=== PATIENT | male | born 1950 | race Caucasian/White ===

== ENCOUNTER 2017-03-05 02:47 | Inpatient (IN) | payer OTHER ==
--- NOTE | ~2017-03-05 | DS ---
Discharge Summary [place] [id number] [place]. [address] NAME: YUE MATIAS : 50 STATUS : DIS IN PAT#: [id number] AGE: 66 ADM/REG DATE : 03/05/17 MR#: [id number] REPORT SERV DATE: 03/09/17 DICTATED BY: RIOS SAUNDERS DATE: 03/08/17 REPORT STATUS : Draft TRANSCRIBED BY: MODL DATE: 03/08/17 ADMISSION DATE: 03/05/2017 DISCHARGE DATE: 03/08/2017 DISCHARGE DIAGNOSES: 1. Large duodenal ulcer with bleeding vessels, status post EGD with Hemoclips. 2. Grade C esophagitis. 3. Gastrointestinal bleed with acute blood loss anemia, the patient did not require any blood transfusions. 4. Gastroesophageal reflux disease. 5. Hypertension. 6. Obstructive sleep apnea. 7. Type 2 diabetes. CONSULTANTS: Dylan Rivera MD of GI. PROCEDURES: EGD performed on 03/05/2017 that showed a large duodenal ulcer with bleeding vessels that was clipped. It also revealed a grade C esophagitis. HOSPITAL COURSE: This is a 66-year-old gentleman who was admitted to the hospital with acute GI bleed. For details, please refer to excellent H and P dictated by Dr. Matt Lopez. In summary, the patient was actually admitted to the intensive care unit due to acute ongoing bleeding. The patient was seen by GI and underwent an EGD. The EGD findings are noted above. After the EGD, the patient remained on Protonix drip for 72 hours and he did not have any further evidence of bleeding. The patient was admitted with hemoglobin of 14 which declined down to 10 and it remained stable there, and thus, he did not require any blood transfusions. The patient is now being discharged home after appropriate length of IV Protonix therapy. The patient has plans for close outpatient followup. DISPOSITION: Home. DISCHARGE MEDICATIONS: Protonix 40 mg p.o. b.i.d. as a new medication, otherwise, no changes. FOLLOWUP: 1. Please follow up with PCP in the next one to two weeks. 2. Please follow up with GI as instructed. A total of 25 minutes spent in coordinating this patient's discharge today. DICTATED BY: Rios Saunders MD Barbara/SAMANTA Discharge Summary [place] [id number] [address] NAME: YUE MATIAS : 50 STATUS : DIS IN PAT#: [id number] AGE: 66 ADM/REG DATE : 03/05/17 MR#: [id number] REPORT SERV DATE: 03/09/17 DICTATED BY: RIOS SAUNDERS DATE: 03/08/17 REPORT STATUS : Draft TRANSCRIBED BY: SAMANTA DATE: 03/08/17 Rios Saunders MD / [id number] CC: Missy Hansen M.D.
--- NOTE | ~2017-03-05 | CN ---
Consultation Report [facility] [address] [place]. [address] NAME: YUE MATIAS : 50 STATUS : ADM IN PAT#: [id number] AGE: 66 ADM/REG DATE : 03/05/17 MR#: [id number] REPORT SERV DATE: 03/05/17 DICTATED BY: DYLAN SCHMIDT DATE: 03/05/17 REPORT STATUS : Draft TRANSCRIBED BY: MODL DATE: 03/05/17 INPATIENT CONSULTATION DATE OF CONSULTATION: 03/05/2017 REASON FOR CONSULTATION: Melena and concern for upper GI bleeding. HISTORY OF PRESENT ILLNESS: Mr. Matias is a very pleasant 66-year-old male with a past medical history significant for prior peptic ulcer disease, who presented to the emergency department after multiple episodes of black tarry stool. The patient states that he had an episode of what he believes to be food poisoning almost a week ago with abdominal discomfort, loose bowels, and nauseousness, but no episodes of vomiting. The patient has had hiccups since last week and has felt the need to vomit, but has not been able to. The patient denies any NSAID use. He states that his last EGD and colon was approximately six years ago in 2010 in [place] with no significant findings at that time. On the day prior to this consultation, the patient started having black stools, which is what prompted him to come to the emergency department along with a feeling of weakness and severe fatigue. Upon presentation in the emergency department, the patient was noted to have CBC with a white count of 17.3, hemoglobin of 13.9, and a platelet count of 356,000. INR was 1.2. PTT was 25. Comprehensive metabolic panel was remarkable only for an elevated BUN of 48 with a creatinine of 0.95. LFTs were normal. Electrolytes were normal. The patient underwent a CT of the abdomen and pelvis, which showed no acute abnormalities, although there was evidence of granulomatous disease both in the liver and spleen. In addition to this, there was also an increased area in the dependent portion of the cecum of contrast with question of retained medication versus contrast leakage into that area. No fevers or chills. No vomiting. No current abdominal pain. REVIEW OF SYSTEMS: All systems were reviewed and were negative aside from what was mentioned in the history of present illness. PAST MEDICAL HISTORY: 1. History of past peptic ulcer disease. 2. GERD. 3. Hypertension. 4. Diabetes. 5. COPD. FAMILY HISTORY: The patient denies any family history of GI related malignancy. SOCIAL HISTORY: The patient denies alcohol or illicit substance abuse. ALLERGIES: THE PATIENT HAS ALLERGIES TO NSAIDS. Consultation Report [place] [id number] [place]. [address] NAME: YUE MATIAS : 50 STATUS : ADM IN [facility]#: [id number] AGE: 66 ADM/REG DATE : 03/05/17 MR#: [id number] REPORT SERV DATE: 03/05/17 DICTATED BY: DYLAN SCHMIDT DATE: 03/05/17 REPORT STATUS : Draft TRANSCRIBED BY: SAMANTA DATE: 03/05/17 OUTPATIENT MEDICATIONS: Include. 1. Norvasc. 2. Atenolol. 3. Lasix. 4. Glucotrol. 5. Potassium chloride. 6. Lisinopril. 7. Metformin. 8. Zantac. 9. Vitamin D. 10.Vitamin C. 11.Combivent. 12.Phenergan. 13.Prednisone. PHYSICAL EXAMINATION: VITAL SIGNS: Most recent vital signs include a temperature of 97.6 with a T-max of 97.6, pulse rate of 109, blood pressure is 185/91, saturating 99% on 2 L nasal cannula oxygen. GENERAL: Inspection reveals a morbidly obese, male, lying in bed, in no apparent distress. HEENT: Head is normocephalic, atraumatic with normal inspection of the oral mucosa and posterior pharynx. Sclerae nonicteric. Pupils are equal and round. NECK: Supple without lymphadenopathy. CARDIAC: Heart rate is tachycardic, but regular. LUNGS: Lung sounds are clear to auscultation anteriorly. ABDOMEN: Mildly distended, nontender, and soft. Bowel sounds were appropriate. The patient had no masses that were palpated. EXTREMITIES: The patient had no cyanosis, clubbing, or edema. SKIN: No jaundice or rash. NEURO: No gross motor deficits. He is alert and oriented. Mood and affect are appropriate. Judgment appears to be intact. LABORATORY DATA: Most recent laboratory results show a hemoglobin of 13.0, and hematocrit of 39.4. Comprehensive metabolic panel and prior CBC are as noted in the history of present illness. DIAGNOSTIC STUDIES: CT of the abdomen and pelvis was reviewed personally by myself and showed no acute abnormality, question trace amount of contrast in the dependent portion of the cecum as noted in the report. ASSESSMENT AND PLAN: Mr. Matias is a very pleasant 66-year-old male with significant history of prior peptic ulcer disease on prednisone, who presents with nausea and multiple episodes of black stools concerning for recurrent upper GI bleed. We would keep patient n.p.o. for the time being and keep him on a Protonix drip continuously. We would continue to check his hemoglobin level every eight hours and transfuse as felt appropriate. We will plan on Consultation Report [place] [id number] [facility] [place]. [address] NAME: YUE MATIAS : 50 STATUS : ADM IN [facility]#: [id number] AGE: 66 ADM/REG DATE : 03/05/17 MR#: [id number] REPORT SERV DATE: 03/05/17 DICTATED BY: DYLAN SCHMIDT DATE: 03/05/17 REPORT STATUS : Draft TRANSCRIBED BY: SAMANTA DATE: 03/05/17 performing EGD in the near future. Thank you very much for this interesting consult and for allowing us to participate in Mr. Matias's care. Please call with any questions or concerns you might have. Barbara/SAMANTA Dylan Schmidt MD / [id number] CC: Missy Hansen M.D.
--- NOTE | ~2017-03-05 | IDS ---
Interim Discharge Summary [facility] [address] [place]. [address] NAME: YUE MATIAS : 50 STATUS : ADM IN [facility]#: [id number] AGE: 66 ADM/REG DATE : 03/05/17 MR#: [id number] REPORT SERV DATE: 03/06/17 DICTATED BY: MIGUEL MTZ IV DATE: 03/06/17 REPORT STATUS : Draft TRANSCRIBED BY: SAMANTA DATE: 03/06/17 ADMISSION DATE: 03/05/2017 DISCHARGE DATE: Date of transfer to the floor was 03/06/2017. ADMITTING DIAGNOSES: 1. Gastrointestinal bleed. 2. Large duodenal ulcer, with bleeding vessels which was clipped, with additional findings of grade C esophagitis. 3. Gastroesophageal reflux disease. 4. Hypertension. 5. Obstructive sleep apnea. 6. Type 2 diabetes mellitus. 7. Remote smoking history, for which he had a Combivent inhaler. There are no known chronic obstructive pulmonary disease. CONSULTANTS: Gastroenterology, Dr. Rivera. PROCEDURES: The patient underwent abdominal CT scan in the emergency room which demonstrated no evidence for obstruction, with evidence for old granulomatous disease. The patient had bilateral large hernias. He did have several punctate increased densities in the large bowel of unclear significance. The patient underwent EGD on 03/05/2017, demonstrating a grade C esophagitis, with herniation in the stomach, and confluent duodenal ulcers with visible vessel bleeding which was injected with epinephrine and clipped x2. CURRENT MEDICATIONS: The patient is on a Protonix drip, level 2 insulin sliding scale, pneumatic compression stockings, atenolol 25 mg daily, and Glucotrol 5 mg daily. HOSPITAL COURSE: The patient presented on 03/05/2017 with melena. He had a hemoglobin of 13.9. The patient was placed on Protonix drip, kept n.p.o. He underwent endoscopy on 03/05/2017, demonstrating the esophagitis with confluent duodenal ulcers with a bleeding vessel. The patient underwent epinephrine injection and clips, with subsequent hemoglobin stable, with current level of 12.2. He was initiated on clear liquid diet on 03/06/2017. All of his oral medications were held and he only recently has had a slight rise in his blood pressure. He was re-initiated on atenolol with hydralazine p.r.n. He is compliant with his home CPAP. He has an inhaler that he can use on an as-needed basis. Hemoglobin A1c will be obtained. He was re-initiated on Glucotrol, though metformin has been kept on hold. He was on DVT prophylaxis with pneumatic compression stockings. It was felt that he was stable for transfer to the floor, with hospitalist asked to resume responsibilities. He will continued to be followed by GI. Interim Discharge Summary [address] [address] NAME: YUE MATIAS : 50 STATUS : ADM IN PAT#: [id number] AGE: 66 ADM/REG DATE : 03/05/17 MR#: [id number] REPORT SERV DATE: 03/06/17 DICTATED BY: MIGUEL MTZ IV DATE: 03/06/17 REPORT STATUS : Draft TRANSCRIBED BY: SAMANTA DATE: 03/06/17 BRAYAN/SAMANTA Miguel Mtz IV, M.D. / [id number] CC: Missy Hansen M.D.
--- NOTE | ~2017-03-05 | HP ---
History And Physical [place] [id number] [facility] [place]. [address] NAME: YUE MATIAS : 50 STATUS : ADM IN [facility]#: [id number] AGE: 66 ADM/REG DATE : 03/05/17 MR#: [id number] REPORT SERV DATE: 03/05/17 DICTATED BY: JOSETTE HEADLEY DATE: 03/05/17 REPORT STATUS : Draft TRANSCRIBED BY: SAMANTA DATE: 03/05/17 DATE OF ADMISSION: 03/05/2017 REASON FOR ADMISSION: GI bleed. HISTORY OF PRESENT ILLNESS: The patient developed melena at home with some mild abdominal discomfort, but multiple melenic bowel movements, he even had some since admission to the ER, though no overt hematemesis. His initial blood pressure was low, but respond well to fluids, but he remained tachycardic, and overall uncomfortable with mild respiratory discomfort as well. He had a prior remote history of peptic ulcer disease, though that was several years ago. Former smoker. He is more comfortable, but again not back to his baseline. PAST MEDICAL HISTORY: Significant for peptic ulcer disease, hypertension. REVIEW OF SYSTEMS: Positive for what was noted above. SOCIAL HISTORY: Significant for prior tobacco use. No alcohol abuse. PHYSICAL EXAMINATION: GENERAL: He appears fatigued, tachypneic, tachycardic, but in no respiratory distress. HEENT: Normocephalic, atraumatic. NECK: Supple. No lymphadenopathy. No JVD. CHEST: Symmetric with good expansion bilaterally. LUNGS: Have distant breath sounds, but are clear. CARDIOVASCULAR: He has S1 and S2, which are tachycardic. ABDOMEN: Benign. He has no edema. No clubbing. No cyanosis. ASSESSMENT AND PLAN: Gastrointestinal bleed. The patient has had multiple melenic stools and will be seen by GI this morning. Hemoglobin is remarkably stable and has been good from admission, but he was very tachycardic, transiently hypotensive, and because of the high number of melena, bowel movements, we agreed to monitor him in the intensive care unit. Care was discussed with the patient and with the emergency department staff. DARREN/SAMANTA Josette Headley M.D. / [id number] CC: History And Physical [address] [address] NAME: YUE MATIAS : 50 STATUS : ADM IN PAT#: [id number] AGE: 66 ADM/REG DATE : 03/05/17 MR#: [id number] REPORT SERV DATE: 03/05/17 DICTATED BY: JOSETTE HEADLEY DATE: 03/05/17 REPORT STATUS : Draft TRANSCRIBED BY: MODL DATE: 03/05/17 Missy Hansen M.D.
--- NOTE | ~2017-03-05 | EGD ---
EGD REPORT [facility] [address] [address] NAME: YUE MATIAS : 50 STATUS : DIS IN PAT#: [id number] AGE: 66 ADM/REG DATE : 03/05/17 MR#: [id number] REPORT SERV DATE: 03/09/17 DICTATED BY: DYLAN SCHMIDT DATE: 03/09/17 REPORT STATUS : Draft [facility]ANSCRIBED BY: [facility] DATE: 03/09/17 Endoscopy Center Patient Name: Yue Matias Date of : 1950 Attending MD: DYLAN SCHMIDT MD Procedure Date No Time: 03/05/2017 Procedure: Upper GI endoscopy Indications: Melena Medicines: Monitored Anesthesia Care Complications: No immediate complications. Estimated blood loss: Minimal. Procedure: Pre-Anesthesia Assessment: - ASA Grade Assessment: III - A patient with severe systemic disease. After obtaining informed consent, the endoscope was passed under direct vision. Throughout the procedure, the patient's blood pressure, pulse, and oxygen saturations were monitored continuously. The GIF [id number] was introduced through the mouth, and advanced to the second part of duodenum. The upper GI endoscopy was accomplished without difficulty. The patient tolerated the procedure well. Findings: LA Grade C (one or more mucosal breaks continuous between tops of 2 or more mucosal folds, less than 75% circumference) esophagitis with no bleeding was found in the lower third of the esophagus. Hematin (altered blood/ufugch-rbsxxi-aspf material) was found in the entire examined stomach. Many oozing cratered duodenal ulcers with a visible vessel were found in the duodenal bulb and in the first part of the duodenum. The largest lesion was 20 mm in largest dimension. Area was successfully injected with 5 mL of a 1:10,000 solution of epinephrine for hemostasis. Two hemostatic clips were successfully placed. There was no bleeding at the end of the procedure. Estimated blood loss was minimal. Biopsies were taken with a cold forceps for histology. Estimated blood loss was minimal. The exam was otherwise without abnormality. Impression: - LA Grade C reflux esophagitis. - Hematin (altered blood/ziqvxj-hluhks-nxgw material) in the entire stomach. - Multiple duodenal ulcers oozing blood. Injected. Clips were placed. Biopsied. - The examination was otherwise normal. EGD REPORT [address] [address] NAME: YUE MATIAS : 50 STATUS : DIS IN PAT#: [id number] AGE: 66 ADM/REG DATE : 03/05/17 MR#: [id number] REPORT SERV DATE: 03/09/17 DICTATED BY: DYLAN SCHMIDT DATE: 03/09/17 REPORT STATUS : Draft TRANSCRIBED BY: [employer] DATE: 03/09/17 Recommendation: - NPO today. - Await pathology results. - Give Protonix (pantoprazole): 8 mg/hr IV by continuous infusion for 3 days. Procedure Code(s): --- Professional --- 97454, 59, Esophagogastroduodenoscopy, flexible, transoral; with control of bleeding, any method 57958, Esophagogastroduodenoscopy, flexible, transoral; with biopsy, single or multiple Diagnosis Code(s): --- Professional --- K21.0, Gastro-esophageal reflux disease with esophagitis K92.2, Gastrointestinal hemorrhage, unspecified K26.4, Chronic or unspecified duodenal ulcer with hemorrhage K92.1, Melena CPT copyright 2013 [employer]. All rights reserved. The codes documented in this report are preliminary and upon fine grade bulldozer operator review may be revised to meet current compliance requirements. Dylan Schmidt MD DYLAN SCHMIDT MD 03/05/2017 4:19 PM This report has been signed electronically. Number of Addenda: 0 Note Initiated On: 03/05/2017 3:20 PM Scope Withdrawal Time 0 hours 0 minutes 0 seconds [address] [place] [address]
[2017-03-05 01:22] LABS: INTERNATIONAL NORMAL RATI 1.2 UNITS (-); PARTIAL THROMBO TIME 24.9 SEC (22.5-37.2); PROTIME (NOT ORD) 14.9 SEC (12.0-14.5)
[2017-03-05 01:28] LABS: BASOPHILS 0.1 %; BASOPHILS ABSOLUTE 0.02 10/3/uL (0.0-0.16); EOSINOPHILS 0.1 %; EOSINOPHILS ABSOLUTE 0.02 10/3/uL (0.0-0.53); HEMATOCRIT 40.9 % (40.0-51.0); HEMOGLOBIN 13.9 g/dL (13.6-17.8); IMMATURE GRANULOCYTES 1.9 %; IMMATURE GRANULOCYTES ABSOLUTE 0.33 10/3/uL (0.0-0.11); LYMPHOCYTES 15.2 %; LYMPHOCYTES ABSOLUTE 2.63 10/3/uL (0.67-4.30); MEAN CORPUSCULAR HEMOGLOB 31.3 pg (26.0-34.0); MEAN CORPUSCULAR VOLUME 92.1 fL (80-100); MEAN PLATELET VOLUME 10.7 fL (9.2-13.0); MONOCYTES 12.6 %; MONOCYTES ABSOLUTE 2.17 10/3/uL (0.21-1.20); NEUTROPHILS 70.1 %; NEUTROPHILS ABSOLUTE 12.11 10/3/uL (2.02-8.40); PLATELET COUNT 356 10/3/uL (150-400); RED CELL COUNT 4.44 10/6/uL (4.7-6.1); WHITE BLOOD CELLS 17.3 10/3/uL (4.5-10.5)
[2017-03-05 01:29] LABS: MANUAL DIFF NO %
[2017-03-05 01:30] LABS: A/G RATIO 0.8 (0.7-1.9); ALKALINE PHOSPHATASE 54 U/L (45-117); BUN (BLOOD UREA NITROGEN) 48 MG/DL (6-23); CALCIUM, SERUM 8.4 MG/DL (8.5-10.4); CHLORIDE, SERUM 106 MMOL/L (96-112); CO2 (CARBON DIOXIDE) 24 MMOL/L (24-34); CREATININE 0.95 MG/DL (0.70-1.30); GFR AFRICAN AMERICAN 96 ML/MIN (>=60); GFR NON AFRICAN AMERICAN 83 ML/MIN (>=60); GLOBULIN 3.7 G/DL (2.5-4.1); GLUCOSE, SERUM 253 MG/DL (60-99); POTASSIUM, SERUM 4.9 MMOL/L (3.5-5.3); SGOT(AST) 16 U/L (5-40); SGPT(ALT) 36 U/L (5-65); SODIUM, SERUM 140 MMOL/L (135-148); TOTAL BILIRUBIN 0.4 MG/DL (0-1.2); TOTAL PROTEIN 6.7 G/DL (6.0-8.5)
[~2017-03-05 02:47] MED LIST: NORV10 PO
[2017-03-05] MEDS ORDERED: ATEN25 PO (02:48)
[2017-03-05] MEDS ORDERED: L40 PO (02:48)
[2017-03-05] MEDS ORDERED: KLOR-CON M1010 MEQ PO (02:49)
[2017-03-05] MEDS ORDERED: GLUCXL5 PO (02:49)
[2017-03-05] MEDS ORDERED: LISINOPRIL40 MG PO (02:50)
[2017-03-05] MEDS ORDERED: GLUCOPHAGE1000 MG PO (02:50)
[2017-03-05] MEDS ORDERED: VITAMIN D31000 UNIT PO (02:56)
[2017-03-05] MEDS ORDERED: ZANTAC150 MG PO (02:56)
[2017-03-05] MEDS ORDERED: VITAMIN C PO (02:57)
[2017-03-05] MEDS ORDERED: PR25 PO ×2 (03:24→03:25)
[2017-03-05] MEDS ORDERED: COMBIVENT RESPIM4 GM INH (03:24)
[2017-03-05] MEDS ORDERED: P20 PO (03:25)
[2017-03-05 06:01] LABS: HEMATOCRIT 39.4 % (40.0-51.0)
[2017-03-05 09:06] LABS: HEMATOCRIT 38.2 % (40.0-51.0); HEMOGLOBIN 13.1 g/dL (13.6-17.8)
[2017-03-05 12:54] LABS: HEMATOCRIT 37.9 % (40.0-51.0); HEMOGLOBIN 12.9 g/dL (13.6-17.8)
[2017-03-05 17:03] LABS: HEMOGLOBIN 14.5 g/dL (13.6-17.8)
[2017-03-05 17:05] LABS: HEMATOCRIT 43.4 % (40.0-51.0)
[2017-03-05 20:44] LABS: HEMATOCRIT 33.9 % (40.0-51.0); HEMOGLOBIN 11.3 g/dL (13.6-17.8)
[2017-03-06 01:32] LABS: HEMATOCRIT 33.3 % (40.0-51.0); HEMOGLOBIN 11.3 g/dL (13.6-17.8)
[2017-03-06 05:38] LABS: HEMOGLOBIN 12.2 g/dL (13.6-17.8)
[2017-03-06 05:41] LABS: HEMATOCRIT 36.9 % (40.0-51.0)
[2017-03-06 11:02] LABS: BASOPHILS 0.3 %; BASOPHILS ABSOLUTE 0.03 10/3/uL (0.0-0.16); EOSINOPHILS 0.7 %; EOSINOPHILS ABSOLUTE 0.08 10/3/uL (0.0-0.53); HEMATOCRIT 34.1 % (40.0-51.0); HEMOGLOBIN 11.2 g/dL (13.6-17.8); IMMATURE GRANULOCYTES 2.7 %; IMMATURE GRANULOCYTES ABSOLUTE 0.32 10/3/uL (0.0-0.11); LYMPHOCYTES 26.6 %; LYMPHOCYTES ABSOLUTE 3.17 10/3/uL (0.67-4.30); MANUAL DIFF NO %; MEAN CORPUS HGB CONC 32.8 g/dL (32.0-36.0); MEAN CORPUSCULAR HEMOGLOB 30.9 pg (26.0-34.0); MEAN CORPUSCULAR VOLUME 93.9 fL (80-100); MEAN PLATELET VOLUME 10.2 fL (9.2-13.0); MONOCYTES 11.5 %; MONOCYTES ABSOLUTE 1.37 10/3/uL (0.21-1.20); NEUTROPHILS 58.2 %; NEUTROPHILS ABSOLUTE 6.95 10/3/uL (2.02-8.40); PLATELET COUNT 270 10/3/uL (150-400); RBC DISTRIBUTION WIDTH 14.5 % (12.0-16.0); RED CELL COUNT 3.63 10/6/uL (4.7-6.1); WHITE BLOOD CELLS 11.9 10/3/uL (4.5-10.5)
[2017-03-06 11:16] LABS: ALBUMIN 2.8 G/DL (3.5-5.0); CHLORIDE, SERUM 115 MMOL/L (96-112); CO2 (CARBON DIOXIDE) 26 MMOL/L (24-34); CREATININE 0.69 MG/DL (0.70-1.30); GFR AFRICAN AMERICAN 115 ML/MIN (>=60); GFR NON AFRICAN AMERICAN 99 ML/MIN (>=60); PHOSPHORUS, SERUM 2.2 MG/DL (2.5-4.5); POTASSIUM, SERUM 4.3 MMOL/L (3.5-5.3); SODIUM, SERUM 144 MMOL/L (135-148)
[2017-03-06 11:18] LABS: BUN (BLOOD UREA NITROGEN) 19 MG/DL (6-23); GLUCOSE, SERUM 154 MG/DL (60-99)
[2017-03-07 02:18] LABS: HEMOGLOBIN 9.9 g/dL (13.6-17.8); MEAN CORPUS HGB CONC 32.7 g/dL (32.0-36.0); MEAN CORPUSCULAR HEMOGLOB 30.7 pg (26.0-34.0); MEAN CORPUSCULAR VOLUME 94.1 fL (80-100); MEAN PLATELET VOLUME 10.1 fL (9.2-13.0); NUCLEATED RED BLOOD CELLS 0.4 /100WBC (0-0); PLATELET COUNT 263 10/3/uL (150-400); RBC DISTRIBUTION WIDTH 14.4 % (12.0-16.0); RED CELL COUNT 3.22 10/6/uL (4.7-6.1); WHITE BLOOD CELLS 14.6 10/3/uL (4.5-10.5)
[2017-03-07 02:23] LABS: HEMATOCRIT 30.3 % (40.0-51.0); MANUAL DIFF YES %
[2017-03-07 02:27] LABS: ALBUMIN 2.7 G/DL (3.5-5.0); CALCIUM, SERUM 8.1 MG/DL (8.5-10.4); CHLORIDE, SERUM 111 MMOL/L (96-112); CO2 (CARBON DIOXIDE) 27 MMOL/L (24-34); CREATININE 0.71 MG/DL (0.70-1.30); GFR AFRICAN AMERICAN 113 ML/MIN (>=60); GFR NON AFRICAN AMERICAN 98 ML/MIN (>=60); PHOSPHORUS, SERUM 2.7 MG/DL (2.5-4.5); POTASSIUM, SERUM 4.1 MMOL/L (3.5-5.3); SODIUM, SERUM 141 MMOL/L (135-148)
[2017-03-07 02:31] LABS: BUN (BLOOD UREA NITROGEN) 13 MG/DL (6-23); GLUCOSE, SERUM 106 MG/DL (60-99)
[2017-03-07 02:36] LABS: BAND NEUTROPHILS 1 %; EOSINOPHILS 2 %; EOSINOPHILS ABSOLUTE (CALC) 0.29 10/3/uL (0.0-0.53); IMMATURE GRANS ABSOLUTE (CALC) 0.73 10/3/uL (0.0-0.11); LYMPHOCYTES 21 %; LYMPHOCYTES ABSOLUTE (CALC) 3.07 10/3/uL (0.67-4.30); METAMYELOCYTES 4 %; MONOCYTES 4 %; MONOCYTES ABSOLUTE (CALC) 0.58 10/3/uL (0.21-1.20); MYELOCYTES 1 %; NEUTROPHILS ABSOLUTE (CALC) 9.93 10/3/uL (2.02-8.40); PLATELET ESTIMATE ADQ (ADEQUATE); RBC MORPHOLOGY NORM (NORMAL); SEGMENTED NEUTROPHIL (0) 67 %; TOTAL NUCLEATED CELLS 100
[2017-03-07 08:25] LABS: HEMATOCRIT 29.3 % (40.0-51.0); HEMOGLOBIN 9.8 g/dL (13.6-17.8)
[2017-03-07 13:14] LABS: HEMATOCRIT 30.7 % (40.0-51.0); HEMOGLOBIN 10.2 g/dL (13.6-17.8)
[2017-03-07 16:08] LABS: HEMATOCRIT 30.6 % (40.0-51.0); HEMOGLOBIN 10.1 g/dL (13.6-17.8)
[2017-03-07 19:39] LABS: HEMATOCRIT 28.1 % (40.0-51.0); HEMOGLOBIN 9.5 g/dL (13.6-17.8)
[2017-03-08 01:02] LABS: BASOPHILS 0.2 %; BASOPHILS ABSOLUTE 0.03 10/3/uL (0.0-0.16); EOSINOPHILS 1.8 %; EOSINOPHILS ABSOLUTE 0.28 10/3/uL (0.0-0.53); HEMATOCRIT 30.6 % (40.0-51.0); HEMOGLOBIN 10.2 g/dL (13.6-17.8); IMMATURE GRANULOCYTES 1.2 %; IMMATURE GRANULOCYTES ABSOLUTE 0.19 10/3/uL (0.0-0.11); LYMPHOCYTES 21.5 %; LYMPHOCYTES ABSOLUTE 3.33 10/3/uL (0.67-4.30); MEAN CORPUS HGB CONC 33.3 g/dL (32.0-36.0); MEAN CORPUSCULAR HEMOGLOB 30.7 pg (26.0-34.0); MEAN CORPUSCULAR VOLUME 92.2 fL (80-100); MEAN PLATELET VOLUME 10.6 fL (9.2-13.0); MONOCYTES 13.4 %; MONOCYTES ABSOLUTE 2.08 10/3/uL (0.21-1.20); NEUTROPHILS 61.9 %; NEUTROPHILS ABSOLUTE 9.59 10/3/uL (2.02-8.40); PLATELET COUNT 237 10/3/uL (150-400); RBC DISTRIBUTION WIDTH 14.2 % (12.0-16.0); RED CELL COUNT 3.32 10/6/uL (4.7-6.1); WHITE BLOOD CELLS 15.5 10/3/uL (4.5-10.5)
[2017-03-08 01:03] LABS: MANUAL DIFF NO %
[2017-03-08 01:18] LABS: BUN (BLOOD UREA NITROGEN) 10 MG/DL (6-23); CALCIUM, SERUM 8.2 MG/DL (8.5-10.4); CHLORIDE, SERUM 109 MMOL/L (96-112); CO2 (CARBON DIOXIDE) 25 MMOL/L (24-34); CREATININE 0.61 MG/DL (0.70-1.30); GFR AFRICAN AMERICAN 121 ML/MIN (>=60); GFR NON AFRICAN AMERICAN 104 ML/MIN (>=60); GLUCOSE, SERUM 102 MG/DL (60-99); SODIUM, SERUM 141 MMOL/L (135-148)
[2017-03-08 07:11] LABS: HEMATOCRIT 28.8 % (40.0-51.0); HEMOGLOBIN 9.7 g/dL (13.6-17.8)
[2017-03-08] MEDS ORDERED: PROTONIX PO ×2 (10:25→10:27)
== END 2017-03-08 12:06 | disposition home or self-care (01) | DRG 378 ==
LOC: ER 02:47 → CCU 04:03 → 6NO 03-06 12:25
PROVIDERS: Internal Medicine Critical Care Medicine; Internal Medicine Gastroenterology; Internal Medicine Pulmonary Disease; Nurse Practitioner Family; Specialist
PROC: 0W3P8ZZ Control Bleeding in Gastrointestinal Tract, Via Natural or Artificial Opening Endoscopic (ICD-10-PCS; principal; 2017-03-05 16:15)
DX: K26.4 Chronic or unspecified duodenal ulcer with hemorrhage (principal); D62 Acute posthemorrhagic anemia; Z68.41 Body mass index [BMI] 40.0-44.9, adult; I10 Essential (primary) hypertension; K21.0 Gastro-esophageal reflux disease with esophagitis; E11.9 Type 2 diabetes mellitus without complications; G47.33 Obstructive sleep apnea (adult) (pediatric); E66.9 Obesity, unspecified; Z88.6 Allergy status to analgesic agent
CPT/HCPCS: 36415; 71010; 74176; 80048; 80053; 80069; 82272; 82962; 83036; 83735; 85014; 85018; 85025; 85610; 85730; 86677; 86850; 86900; 86901; 86920; 87641; 88305; 93005; 96365; 96366; 99291; A9270-GY; C9113; J1610